=== PATIENT | male | born 1970 | race African-American/Black ===

== ENCOUNTER 2022-07-17 09:23 | Emergency (ER) | payer SELFPAY | END 2022-07-17 10:10 | disposition home or self-care (01) | LOC: JD.ED 09:23 | DX: S66.911A Strain of unspecified muscle, fascia and tendon at wrist and hand level, right hand, initial encounter (principal); Z88.2 Allergy status to sulfonamides; X50.9XXA Other and unspecified overexertion or strenuous movements or postures, initial encounter | CPT/HCPCS: 73110-26-RT; 73110-RT; 99283 ==